=== PATIENT | female | born 1990 | race Caucasian/White ===

== ENCOUNTER 2021-03-03 14:13 | Emergency (ER) | payer BC ==
[~2021-03-03] VITALS: Ht 160 cm; Wt 63.5 kg
[~2021-03-03 14:13] MED LIST: CITA20 PO; ESCITALOPRAM OX10 MG PO; Evening Primro500 MG PO; HYDR1TAB94 PO; IBUP800 PO; MULVITMINE PO; OXYACE5T PO; TYLENOL COLD MED
[2021-03-03 14:37] LABS: Source, Urine Clean Catch
[2021-03-03 14:40] LABS: Appearance, Urine Clear (Clear); Bilirubin, Urine Neg (Neg); Blood, Urine Neg (Neg); Color, Urine Yellow (P-Yellow); Glucose Qualitative, Urine Neg (Neg); Ketones, Urine Neg (Neg); Leukocyte Esterase, Urine Neg (Neg); Nitrite, Urine Neg (Neg); Protein, Urine Neg (Neg); Urobilinogen, Urine NORM (Normal); pH, Urine 6.5 (5.0-8.0)
[2021-03-03 14:51] LABS: BASOPHILS ABSOLUTE AUTO 0.04 K/mm3 (0.00-0.23); BASOPHILS PERCENT AUTO 1 % (0-2); EOSINOPHILS ABSOLUTE AUTO 0.03 K/mm3 (0.00-0.68); EOSINOPHILS PERCENT AUTO 0 % (0-6); Hematocrit 45.4 % (33.0-51.0); Hemoglobin 14.9 g/dL (11.5-16.0); IMMATURE GRAN ABSOLUTE AUTO 0.02 K/mm3 (0.00-0.10); IMMATURE GRAN PERCENT AUTO 0 % (0-1); LYMPHOCYTES ABSOLUTE AUTO 1.85 K/mm3 (0.84-5.20); LYMPHOCYTES PERCENT AUTO 27 % (21-46); MONOCYTES ABSOLUTE AUTO 0.34 K/mm3 (0.16-1.47); MONOCYTES PERCENT AUTO 5 % (4-13); Mean Corpuscular HGB 32.5 pg (26.0-34.0); Mean Corpuscular HGB Conc 32.8 g/dL (31.5-36.5); Mean Corpuscular Volume 99 fL (80-100); Mean Platelet Volume 9.7 fL (9.1-12.4); NEUTROPHILS ABSOLUTE AUTO 4.56 K/mm3 (1.96-9.15); NEUTROPHILS PERCENT AUTO 67 % (41-73); Platelet Count 255 K/mm3 (150-400); RDW Coefficient Variation 12.7 % (11.7-14.2); RDW Standard Deviation 46.4 fL (35.1-46.3); Red Blood Cell Count 4.58 M/mm3 (3.80-5.20); White Blood Cell Count 6.84 K/mm3 (4.00-11.30)
[2021-03-03 15:09] LABS: Alanine Aminotransfer (ALT/SGP 42 U/L (12-78); Albumin, Blood 3.9 g/dL (3.4-5.0); Albumin/Globulin Ratio 1.1 (0.8-1.8); Alk Phos 52 U/L (50-136); Anion Gap 3 mmol/L (6-16); Aspartate Aminotrans (AST/SGOT 25 U/L (12-37); Bilirubin, Total 0.8 mg/dL (0.1-1.0); Blood Urea Nitrogen 13 mg/dL (8-24); Bun/Creatinine Ratio 23.2 (12.0-20.0); CO2, Blood 28 mmol/L (21-32); Chloride, Blood 107 mmol/L (98-108); Creatinine, Blood 0.56 mg/dL (0.40-1.00); Globulin, Blood 3.6 g/dL (2.2-4.0); Glomerular Filtration Rate >60 (60-); Glucose, Blood 87 mg/dL (70-99); Potassium, Blood 3.7 mmol/L (3.5-5.5); Sodium, Blood 138 mmol/L (136-145); Total Protein, Blood 7.5 g/dL (6.4-8.2)
[2021-03-03] MEDS ORDERED: IBUP600 PO (18:14)
[2021-03-03] MEDS ORDERED: OXYACE7.5T PO (18:14)
== END 2021-03-03 18:30 | disposition home or self-care (01) ==
LOC: ER 14:13
PROVIDERS: Physician Assistant
DX: D25.9 Leiomyoma of uterus, unspecified (principal); N83.202 Unspecified ovarian cyst, left side; N83.201 Unspecified ovarian cyst, right side; Z88.2 Allergy status to sulfonamides
CPT/HCPCS: 36415; 74176; 76830; 76856; 80053; 81003; 81025; 83690; 85025; 96374; 96375; 99284-25; A9270; J1170; J1885; J2405; J3010

== ENCOUNTER → 2022-06-29 | Outpatient (CLI) | payer OTHER ==
[~2022-06-29] MED LIST changes: +IBUP600 PO; +OXYACE7.5T PO
[2022-06-29 14:16] LABS: BASOPHILS ABSOLUTE AUTO 0.04 K/mm3 (0.00-0.23); BASOPHILS PERCENT AUTO 1 % (0-2); EOSINOPHILS ABSOLUTE AUTO 0.08 K/mm3 (0.00-0.68); EOSINOPHILS PERCENT AUTO 1 % (0-6); Hematocrit 41.3 % (33.0-51.0); Hemoglobin 13.6 g/dL (11.5-16.0); IMMATURE GRAN ABSOLUTE AUTO 0.02 K/mm3 (0.00-0.10); IMMATURE GRAN PERCENT AUTO 0 % (0-1); LYMPHOCYTES ABSOLUTE AUTO 1.91 K/mm3 (0.84-5.20); LYMPHOCYTES PERCENT AUTO 32 % (21-46); MONOCYTES ABSOLUTE AUTO 0.29 K/mm3 (0.16-1.47); MONOCYTES PERCENT AUTO 5 % (4-13); Mean Corpuscular HGB 31.9 pg (26.0-34.0); Mean Corpuscular HGB Conc 32.9 g/dL (31.5-36.5); Mean Corpuscular Volume 97 fL (80-100); Mean Platelet Volume 9.8 fL (9.1-12.4); NEUTROPHILS ABSOLUTE AUTO 3.63 K/mm3 (1.96-9.15); NEUTROPHILS PERCENT AUTO 61 % (41-73); Platelet Count 281 K/mm3 (150-400); Red Blood Cell Count 4.27 M/mm3 (3.80-5.20); White Blood Cell Count 5.97 K/mm3 (4.00-11.30)
[2022-06-29 15:11] LABS: Follicle Stimulating Hormone 6.2 mIU/ml; Percent Saturation 18.1 % (15.0-50.0); Thyroid Stimulating Hormone 0.77 uIU/mL (0.360-4.800)
== END | disposition home or self-care (01) ==
LOC: LAB SHORT 11:15 → LAB 11:15
PROVIDERS: Obstetrics & Gynecology
DX: Z31.9 Encounter for procreative management, unspecified (principal); N92.6 Irregular menstruation, unspecified; R63.5 Abnormal weight gain
CPT/HCPCS: 82306; 82670; 82728; 83001; 83540; 83550; 84443; 85025

== ENCOUNTER → 2022-10-03 | Outpatient (CLI) | payer OTHER ==
[2022-10-03 16:58] LABS: Source, Urine Clean Catch
[2022-10-03 17:38] LABS: Amorphous Light (0-Heavy); Bacteria Few /hpf; Red Blood Cells, Urine 0-2 /hpf (0-2); Squamous Epithelial Cells Rare /hpf (Few); White Blood Cells, Urine 0-2 /hpf (0-5)
== END | disposition home or self-care (01) ==
LOC: LAB SHORT 15:30 → LAB 15:30
PROVIDERS: Obstetrics & Gynecology
DX: Z34.81 Encounter for supervision of other normal pregnancy, first trimester (principal)
CPT/HCPCS: 81015; 87086

== ENCOUNTER → 2023-04-25 | Outpatient (CLI) | payer OTHER | END | disposition home or self-care (01) | LOC: LAB SHORT 15:42 | DX: O09.512 Supervision of elderly primigravida, second trimester (principal) | CPT/HCPCS: 87081; 87150 ==

== ENCOUNTER 2023-05-05 05:48 | Inpatient (IN) | payer OTHER ==
[2023-05-05] VITALS (22 sets, daily range): BP systolic 87–113; BP diastolic 49–98
[~2023-05-05] VITALS: Ht 160 cm; Wt 94.9 kg
[2023-05-05] MEDS ORDERED: PEPCID40 MG PO (06:17)
[2023-05-05] MEDS ORDERED: PRENATAL 19 TA1 EAC3 PO (06:17)
[2023-05-05 06:38] LABS: BASOPHILS ABSOLUTE AUTO 0.02 K/mm3 (0.00-0.23); BASOPHILS PERCENT AUTO 0 % (0-2); EOSINOPHILS ABSOLUTE AUTO 0.03 K/mm3 (0.00-0.68); EOSINOPHILS PERCENT AUTO 0 % (0-6); Hematocrit 37.7 % (33.0-51.0); Hemoglobin 12.7 g/dL (11.5-16.0); IMMATURE GRAN ABSOLUTE AUTO 0.03 K/mm3 (0.00-0.10); IMMATURE GRAN PERCENT AUTO 0 % (0-1); LYMPHOCYTES PERCENT AUTO 29 % (21-46); MONOCYTES ABSOLUTE AUTO 0.52 K/mm3 (0.16-1.47); MONOCYTES PERCENT AUTO 6 % (4-13); Mean Corpuscular HGB 31.9 pg (26.0-34.0); Mean Corpuscular HGB Conc 33.7 g/dL (31.5-36.5); Mean Corpuscular Volume 95 fL (80-100); Mean Platelet Volume 10.9 fL (9.1-12.4); NEUTROPHILS ABSOLUTE AUTO 6.11 K/mm3 (1.96-9.15); NEUTROPHILS PERCENT AUTO 65 % (41-73); Platelet Count 227 K/mm3 (150-400); RDW Coefficient Variation 15.2 % (11.7-14.2); RDW Standard Deviation 52.3 fL (35.1-46.3); Red Blood Cell Count 3.98 M/mm3 (3.80-5.20); White Blood Cell Count 9.41 K/mm3 (4.00-11.30)
--- NOTE | 2023-05-05 09:00 | NUR ---
05/05/23 0900 Vipul Brown VIABLE MALE, BORN AT 0826, APGARS [birth year], 2910 G
--- NOTE | 2023-05-05 11:04 | NUR ---
PT EDUCATED ON IMPORTANCE OF PAIN CONTROL. ROXICODONE AND TYLENOL OFFERED AND REFUSED BY PT. WILL CONTINUE TO MONITOR. EDUCATED PT TO PLEASE REQUEST PAIN MEDICATION IF/WHEN NEEDED.
--- NOTE | 2023-05-05 12:09 | NUR ---
REPORT GIVEN TO BERTHA MAK AND YOVANA PANG RN. TO ASSUME CARE.
[2023-05-06 01:14] VITALS: BP 107/55
[2023-05-06 04:45] VITALS: BP 107/64
[2023-05-06 06:00] LABS: BASOPHILS ABSOLUTE AUTO 0.04 K/mm3 (0.00-0.23); BASOPHILS PERCENT AUTO 0 % (0-2); EOSINOPHILS ABSOLUTE AUTO 0.11 K/mm3 (0.00-0.68); EOSINOPHILS PERCENT AUTO 1 % (0-6); Hematocrit 35.6 % (33.0-51.0); Hemoglobin 11.5 g/dL (11.5-16.0); IMMATURE GRAN ABSOLUTE AUTO 0.06 K/mm3 (0.00-0.10); IMMATURE GRAN PERCENT AUTO 1 % (0-1); LYMPHOCYTES ABSOLUTE AUTO 2.29 K/mm3 (0.84-5.20); LYMPHOCYTES PERCENT AUTO 21 % (21-46); MONOCYTES ABSOLUTE AUTO 0.45 K/mm3 (0.16-1.47); MONOCYTES PERCENT AUTO 4 % (4-13); Mean Corpuscular HGB 31.8 pg (26.0-34.0); Mean Corpuscular HGB Conc 32.3 g/dL (31.5-36.5); Mean Corpuscular Volume 98 fL (80-100); Mean Platelet Volume 10.6 fL (9.1-12.4); NEUTROPHILS PERCENT AUTO 73 % (41-73); Platelet Count 190 K/mm3 (150-400); RDW Coefficient Variation 15.5 % (11.7-14.2); RDW Standard Deviation 54.6 fL (35.1-46.3); Red Blood Cell Count 3.62 M/mm3 (3.80-5.20); White Blood Cell Count 11.05 K/mm3 (4.00-11.30)
[2023-05-06 07:48] VITALS: BP 100/63
--- NOTE | 2023-05-06 08:29 | NUR ---
PT REPORTS BILATERAL PAIN IN LEGS THAT HAS OCCURED SINCE PREVIOUS TO , CAMPING/BURNING SENSATION. REPORTS CONCERN OF FALLING INITIALLY WHEN STANDING UP, INSTRUCTED TO STAND SLOWLY. ASSISTING WITH AMBULATING TO BATHROOM. GAIT SLOW BUT STEADY. DR. ACOSTA INFORMED WHILE ROUNDING. RECEIVED ORDER TO PT EVALUATION.
[2023-05-06 11:39] VITALS: BP 111/65
[2023-05-06 15:38] VITALS: BP 106/63
[2023-05-06 20:00] VITALS: BP 102/57
[2023-05-07] VITALS (7 sets, daily range): BP systolic 95–114; BP diastolic 55–70
--- NOTE | 2023-05-07 14:32 | NUR ---
mom wants to switch to formula instead of donor breast milk because she will have to feed formula wanted to make sure baby will tolerate it before discharge will continue to breast feed 10 minutes then top off with 20 cc formula and continue to pump after each feed
[2023-05-08 04:18] VITALS: BP 104/61
[2023-05-08 07:37] VITALS: BP 113/61
[2023-05-08 11:34] VITALS: BP 104/60
[2023-05-08] MEDS ORDERED: IBUP800 PO (15:05)
[2023-05-08] MEDS ORDERED: ACET500 PO (15:06)
[2023-05-08] MEDS ORDERED: OXAYDO5 M1 PO (15:07)
[2023-05-08 16:42] VITALS: BP 100/61
== END 2023-05-08 17:35 | disposition home or self-care (01) | DRG 788 ==
LOC: BC 06:10
PROVIDERS: ADMIT Obstetrics & Gynecology
PROC: 10D00Z1 Extraction of Products of Conception, Low, Open Approach (ICD-10-PCS; principal; 2023-05-05 07:30)
DX: O34.211 Maternal care for low transverse scar from previous cesarean delivery (principal); O34.13 Maternal care for benign tumor of corpus uteri, third trimester; Z67.10 Type A blood, Rh positive; Z37.0 Single live birth; Z3A.37 37 weeks gestation of pregnancy; D25.1 Intramural leiomyoma of uterus; O99.214 Obesity complicating childbirth; O99.62 Diseases of the digestive system complicating childbirth; K21.9 Gastro-esophageal reflux disease without esophagitis; Z98.890 Other specified postprocedural states; Z88.2 Allergy status to sulfonamides; Z79.899 Other long term (current) drug therapy
CPT/HCPCS: 36415; 85025; 86850; 86900; 86901; 86923; A9270; J0690; J1885; J2371; J2590; J2765; J3010; J7120

== ENCOUNTER 2024-11-26 15:05 | Observation (INO) | payer BC ==
[~2024-11-26] VITALS: Ht 160 cm; Wt 96.3 kg
[~2024-11-26 15:05] MED LIST changes: +ACET500 PO; +OXAYDO5 M1 PO; +PEPCID40 MG PO; +PRENATAL 19 TA1 EAC3 PO
[2024-11-26] MEDS ORDERED: Betamethasone Sod Phos/Acetate 6 MG/ML 5ML VIAL ONE (16:10)
[2024-11-26] MEDS ORDERED: Betamethasone Sod Phos/Acetate 6 MG/ML 5ML VIAL IM ONE (16:35)
[2024-11-26 17:33] VITALS: BP 115/60
[2024-11-26] MEDS ORDERED: Ondansetron 4 MG SoluTab MM PRN (19:45)
[2024-11-26 19:51] VITALS: BP 118/57
[2024-11-26] MEDS ORDERED: Terbutaline Sulfate 1MG / ML 1 ML Amp SC ONE (21:50)
[2024-11-26 22:32] VITALS: BP 123/59
[2024-11-27 01:45] VITALS: BP 109/55
[2024-11-27 06:35] VITALS: BP 118/65
[2024-11-27 07:32] VITALS: BP 109/74
[2024-11-27 11:45] VITALS: BP 114/58
[2024-11-27] MEDS ORDERED: Betamethasone Sod Phos/Acetate 6 MG/ML 5ML VIAL IM ONE (16:35)
== END 2024-11-27 15:55 | disposition home or self-care (01) ==
LOC: OBS 15:05 → BC 15:14 → OBS 18:54 → BC 11-27 15:55
PROVIDERS: ADMIT Obstetrics & Gynecology
DX: O47.03 False labor before 37 completed weeks of gestation, third trimester (principal); O36.8130 Decreased fetal movements, third trimester, not applicable or unspecified; Z3A.34 34 weeks gestation of pregnancy; O40.3XX0 Polyhydramnios, third trimester, not applicable or unspecified; O09.893 Supervision of other high risk pregnancies, third trimester; Z82.79 Family history of other congenital malformations, deformations and chromosomal abnormalities
CPT/HCPCS: 59025; 76819; 81003; 93306; 96372; 99214; A9270; J0702; J3105

== ENCOUNTER → 2024-11-29 | Outpatient (CLI) | payer BC | LOC: LAB SHORT 15:46 → LAB 15:46 | DX: O09.93 Supervision of high risk pregnancy, unspecified, third trimester (principal); Z3A.00 Weeks of gestation of pregnancy not specified | CPT/HCPCS: 87081; 87150 ==